=== PATIENT | male | born 1980 | race Caucasian/White ===

== ENCOUNTER → 2018-05-06 13:48 | Outpatient (CLI) | payer MEDICAID, SELFPAY ==
--- NOTE | 2018-05-06 13:52 | XR_ITS ---
EXAM: XR lumbar spine min 4V HISTORY: ITS.REASON: Back Pain ORDERING PHYSICIAN: Parviz Beltrán MD PATIENT AGE: 37 years COMPARISON: None FINDINGS: There is multilevel degenerative disc disease from T11 to L4 and L5-S1. There is mild anterolisthesis of L4 on L5 of 7 mm. Schmorl's nodes are present at L2 and L4. Anterior osteophytes are present at L5-S1. No acute fracture or dislocation. No lytic or blastic change. There are facet arthritic changes at L4-L5 and L5-S1. IMPRESSION: Multilevel lumbar spondylosis with degenerative disc disease and facet arthritic change as described above
--- NOTE | 2018-05-06 13:52 | XR_ITS ---
XR femur RT 2V CLINICAL INDICATION: 09/15/2013 ITS.REASON: Leg Pain ORDERING PHYSICIAN: Parviz Beltrán MD PATIENT AGE: 37 years Comparison: None FINDINGS: Intramedullary ebenezer is present stabilizing a no midshaft femoral fracture with abundant callus formation. No acute fracture or dislocation. No lytic or blastic change with no significant change from 09/15/2013. No evidence of orthopedic location regarding the intramedullary ebenezer. IMPRESSION: Prior ORIF right humerus fracture with good alignment with IM ebenezer in place
--- NOTE | 2018-05-06 13:52 | XR_ITS ---
XR sacrum coccyx min 2V CLINICAL INDICATION: ITS.REASON: Pain ORDERING PHYSICIAN: Parviz Beltrán MD PATIENT AGE: 37 years Comparison: None FINDINGS: There is degenerative disc disease at L5-S1. The sacrum and coccyx have an otherwise unremarkable appearance. No fracture or dislocation. No lytic or blastic change. Unremarkable SI joints. IMPRESSION: Degenerative disc disease L5-S1 otherwise negative sacrum/coccyx
--- NOTE | 2018-05-06 13:52 | XR_ITS ---
XR hip RT 2-3V w/pelvis HISTORY: ITS.REASON: Hip Pain ORDERING PHYSICIAN: Parviz Beltrán MD PATIENT AGE: 37 years COMPARISON: 09/28/2013 FINDINGS: Intramedullary ebenezer is present in the proximal right femur with an old midshaft femur fracture. No acute fracture or dislocation. No lytic or blastic change or significant osteoarthritic change evident. IMPRESSION: No acute finding. Prior ORIF old midshaft femoral fracture
--- NOTE | 2018-05-06 14:28 | XR_ITS ---
XR knee RT 4V HISTORY: ITS.REASON: right knee pain ORDERING PHYSICIAN: Parviz Beltrán MD PATIENT AGE: 37 years COMPARISON: None FINDINGS: No fracture or dislocation. No lytic or blastic change. Normal mineralization. Minimal osteoarthritic changes are present at the patellofemoral joint. No other significant anomalies are evident. I am ebenezer is present within the distal femur. No other significant findings IMPRESSION: Minimal osteoarthritic change at the patellofemoral joint
== END ==
PROVIDERS: PCP Emergency Medicine; Visit Provider Orthopaedic Surgery
DX: M54.5 Low back pain (principal); M25.551 Pain in right hip; M25.561 Pain in right knee; M70.61 Trochanteric bursitis, right hip
CPT/HCPCS: 72110; 72220; 73502; 73552; 73564

== ENCOUNTER → 2019-03-28 14:33 | Outpatient (CLI) | payer MEDICAID, SELFPAY ==
--- NOTE | 2019-03-28 14:35 | MR_ITS ---
MR lumbar spine wo con, MR 3-d myelogram/MRCP HISTORY: PT states low back pain X years. PT states will have knots on both sides of back at times. RT leg pain to knee. ITS.REASON: back pain ORDERING PHYSICIAN: Aki Benton MD PATIENT AGE: 38 years Comparison: X-RAY 05/06/18. TECHNIQUE: Standard multiplanar multiecho sequences are performed without contrast. 3-D MIP and myelographic images are also rendered and reviewed FINDINGS: There is normal alignment. Spinal cord ends at the L1 level. T11-T12: Degenerative disc disease. T12-L1: Mild degenerative disc disease. L1-L2: Degenerative disc disease with loss of disc space and minimal bulging disc. L2-L3: Degenerative disc disease with minimal bulging disc. L3-L4: Degenerative disc disease. L4-L5: Minimal anterolisthesis of L4 on L5 of 4 mm with mild facet and ligamentum hypertrophy and minimal bulging disc with mild bilateral lateral recess and foraminal narrowing. L5-S1: Degenerative disc disease with bulging disc and a a small broad-based central left paracentral disc protrusion causing some compression upon the left S1 nerve root with moderate left lateral recess and left foraminal narrowing. Facet hypertrophic changes present causing moderate bilateral foraminal narrowing IMPRESSION: 1. Multilevel lumbar spondylosis with degenerative disc disease and bulging discs. Please see above for detailed description at each level. 2. L4-L5: Minimal anterolisthesis of L4 on L5 of 4 mm with mild facet and ligamentum hypertrophy and minimal bulging disc with mild bilateral lateral recess and foraminal narrowing. 3. L5-S1: Degenerative disc disease with bulging disc and a a small broad-based central left paracentral disc protrusion causing some compression upon the left S1 nerve root with moderate left lateral recess and left foraminal narrowing. Facet hypertrophic changes present causing moderate bilateral foraminal narrowing
== END ==
PROVIDERS: PCP Emergency Medicine; Visit Provider Emergency Medicine
DX: M54.5 Low back pain (principal)
CPT/HCPCS: 72148; 76376

== ENCOUNTER → 2019-04-26 08:39 | Outpatient (POV) | payer MEDICAID, SELFPAY ==
[2019-04-26 08:57] VITALS: BP 149/93; PULSE 54; RESP 18; O2SAT 98
--- NOTE | 2019-04-26 10:00 | [facility]H.PMCON ---
Assessment and Plan (1) Lumbar disc disease with radiculopathy Current visit: No Status: Chronic Category: Medical Code(s): M51.16 - Intervertebral disc disorders with radiculopathy, lumbar region (2) Foraminal stenosis of lumbar region Current visit: No Status: Chronic Category: Medical Code(s): M99.83 - Other biomechanical lesions of lumbar region (3) Lumbar facet arthropathy Current visit: No Status: Chronic Category: Medical Code(s): M47.816 - Spondylosis without myelopathy or radiculopathy, lumbar region (4) Right hip pain Current visit: No Status: Chronic Category: Medical Code(s): M25.551 - Pain in right hip - Assessment and plan all Dx Assessment and Plan for all problems:: We will give the patient a back brace to help stabilize her spine while he works on his lawnmower. We will also follow-up with him after his physical therapy. Patient and I briefly talked about injections but we will hold off until we see how these conservative measures help. Dr. Braxton has reviewed this note and agrees with this plan of care. This note was dictated using voice recognition software and may contain errors or omissions HPI - Data of Consult Consult date: 04/26/19 Requesting Physician: Carolina Stevens APRN Primary Care Provider: Aki Benton MD - Consult Narrative Reason for consult: Back pain History of present illness: Mr. Roberts is a 38 year old male presents today for consultation in regards to his low back pain and right leg pain. Patient had a right femur fracture in 2006. He then had a right sacrum fracture several years later. Patient states that increased activity makes his pain worse while rest and hot shower makes it better he rates his pain a 4 out of 10. He is about to start physical therapy. Patient is currently on pain medication from his primary care physician. He states he also utilizes marijuana at times. Patient states that he has difficulty with the motion of the lawnmower when he sits in it. CC: Carolina Stevens APRN [facility] History I have reviewed the patient's past medical history: Yes Medical History: Denies:: Diabetes Mellitus Type 1, Diabetes Mellitus Type 2 *Have you ever received a pneumonia vaccine?: No *Have you received a flu vaccine this season?: No Other Medical History: Reports: Other Laterality Cases: Right: Other Other Surgeries: Yes: Other Amputation: No Fractures: Yes (RT Femur x 2) - *Social History Smoking Status: Current every day smoker Tobacco Type: cigarettes # Packs/Day (cigarettes): 2 Alcohol Intake: never Alcohol Intake Frequency:: holidays/special occasions only Substance Use Type: marijuana *Occupational Status:: employed Housing: house Household Members: spouse *Travel in the last 8 weeks: None - Psychiatric History Expresses thoughts of harming self/others: None Suicide Plan Description: No Plan Family Hx:: Heart Attack, Cancer, Diabetes Review of Systems - Review of Systems ROS General: no recent weight change, no fever, no sleep disturbances Respiratory: no cough, no shortness of air, no recurring pulmonary infections Cardiovascular/Peripheral Vascular: No chest pain, No palpitations, no edema, no shortness of breath. Gastrointestinal: no incontinence, normal bowel movements reported Genitourinary: no incontinence Musculoskeletal: Back pain, leg pain Psychiatric: normal mood/ affect Neurological: [denies weakness in extremities], [denies balance issues] Meds Home Medications Medication Instructions Recorded Confirmed Type cyclobenzaprine 10 mg tablet 10 mg PO TID #90 tab 09/21/18 03/16/19 Rx gabapentin 800 mg tablet 800 mg PO TID #90 tab 03/16/19 Rx hydrocodone 5 mg-acetaminophen 325 1 tab PO TID PRN #63 tab 04/05/19 Rx mg tablet Allergies Allergy/AdvReac Type Severity Reaction Status Date / Time tramadol Allergy Mild ITCHING Verified 04/05/19 16:02 Objective Vital sig
--- NOTE | 2019-04-26 10:03 | P.CONS_ITS ---
Assessment and Plan (1) Lumbar disc disease with radiculopathy Current visit: No Status: Chronic Category: Medical Code(s): M51.16 - Intervertebral disc disorders with radiculopathy, lumbar region (2) Foraminal stenosis of lumbar region Current visit: No Status: Chronic Category: Medical Code(s): M99.83 - Other biomechanical lesions of lumbar region (3) Lumbar facet arthropathy Current visit: No Status: Chronic Category: Medical Code(s): M47.816 - Spondylosis without myelopathy or radiculopathy, lumbar region (4) Right hip pain Current visit: No Status: Chronic Category: Medical Code(s): M25.551 - Pain in right hip - Assessment and plan all Dx Assessment and Plan for all problems:: We will give the patient a back brace to help stabilize her spine while he works on his lawnmower. We will also follow-up with him after his physical therapy. Patient and I briefly talked about injections but we will hold off until we see how these conservative measures help. Dr. Braxton has reviewed this note and agrees with this plan of care. This note was dictated using voice recognition software and may contain errors or omissions HPI - Data of Consult Consult date: 04/26/19 Requesting Physician: Carolina Stevens APRN Primary Care Provider: Aki Benton MD - Consult Narrative Reason for consult: Back pain History of present illness: Mr. Roberts is a 38 year old male presents today for consultation in regards to his low back pain and right leg pain. Patient had a right femur fracture in 2006. He then had a right sacrum fracture several years later. Patient states that increased activity makes his pain worse while rest and hot shower makes it better he rates his pain a 4 out of 10. He is about to start physical therapy. Patient is currently on pain medication from his primary care physician. He states he also utilizes marijuana at times. Patient states that he has difficulty with the motion of the lawnmower when he sits in it. CC: Carolina Stevens APRN [facility] History I have reviewed the patient's past medical history: Yes Medical History: Denies:: Diabetes Mellitus Type 1, Diabetes Mellitus Type 2 *Have you ever received a pneumonia vaccine?: No *Have you received a flu vaccine this season?: No Other Medical History: Reports: Other Laterality Cases: Right: Other Other Surgeries: Yes: Other Amputation: No Fractures: Yes (RT Femur x 2) - *Social History Smoking Status: Current every day smoker Tobacco Type: cigarettes # Packs/Day (cigarettes): 2 Alcohol Intake: never Alcohol Intake Frequency:: holidays/special occasions only Substance Use Type: marijuana *Occupational Status:: employed Housing: house Household Members: spouse *Travel in the last 8 weeks: None - Psychiatric History Expresses thoughts of harming self/others: None Suicide Plan Description: No Plan Family Hx:: Heart Attack, Cancer, Diabetes Review of Systems - Review of Systems ROS General: no recent weight change, no fever, no sleep disturbances Respiratory: no cough, no shortness of air, no recurring pulmonary infections Cardiovascular/Peripheral Vascular: No chest pain, No palpitations, no edema, no shortness of breath. Gastrointestinal: no incontinence, normal bowel movements reported Genitourinary: no incontinence Musculoskeletal: Back pain, leg pain Psychiatric: normal mood/ affect Neurological: [denies weakness in extremities], [denies balance issues] Meds
== END ==
PROVIDERS: PCP Emergency Medicine; Visit Provider Clinical Nurse Specialist Family Health
DX: M51.16 Intervertebral disc disorders with radiculopathy, lumbar region (principal); M99.83 Other biomechanical lesions of lumbar region; M47.816 Spondylosis without myelopathy or radiculopathy, lumbar region; M25.551 Pain in right hip
CPT/HCPCS: 99202

== ENCOUNTER → 2019-04-29 17:07 | Outpatient (CLI) | payer MEDICAID, SELFPAY ==
[2019-04-29 18:47] LABS: Amphetamine/Metha Screen,Urine Negative ng/mL (<1000); Barbiturates Screen,Urine Negative ng/mL (<200); Benzodiazepines Screen,Urine Negative ng/mL (<200); Cannabinoid Screen,Urine Positive ng/mL (<50); Cocaine Screen,Urine Negative ng/mL (<300); Methadone Screen,Urine Negative ng/mL (<300); Opiate Screen,Urine Positive ng/mL (<300); Phencyclidine Screen,Urine Negative ng/mL (<25)
== END ==
PROVIDERS: Visit Provider Emergency Medicine
DX: M51.16 Intervertebral disc disorders with radiculopathy, lumbar region (principal)
CPT/HCPCS: 80305

== ENCOUNTER → 2019-06-28 17:20 | Outpatient (CLI) | payer MEDICAID, SELFPAY ==
[2019-06-28 18:06] LABS: Amphetamine/Metha Screen,Urine Negative ng/mL (<1000); Barbiturates Screen,Urine Negative ng/mL (<200); Benzodiazepines Screen,Urine Negative ng/mL (<200); Cannabinoid Screen,Urine Positive ng/mL (<50); Cocaine Screen,Urine Negative ng/mL (<300); Methadone Screen,Urine Negative ng/mL (<300); Opiate Screen,Urine Positive ng/mL (<300); Phencyclidine Screen,Urine Negative ng/mL (<25)
== END ==
PROVIDERS: Visit Provider Emergency Medicine
DX: Z79.899 Other long term (current) drug therapy (principal)
CPT/HCPCS: 80305